=== PATIENT | male | born 1950 | race Caucasian/White ===

== ENCOUNTER 2022-12-14 10:21 | Inpatient (IN) | payer BC, OTHER ==
[2022-12-14] MEDS ORDERED: ACETAMINOPHEN 1000 MG/100 ML BAG IVPB ONE ×2 (10:50→16:27)
[2022-12-14] MEDS ORDERED: PIPERACILLIN/TAZOB 3.375 GM 3.375 GM in DEXTROSE 5%-WATER - 50 ML IVPB ONE (10:50)
[2022-12-14] MEDS ORDERED: SODIUM CHLORIDE 1,000 ML IV STA (10:50)
[2022-12-14] MEDS ORDERED: ACETAMINOPHEN INJECTION 100 ML IVPB ONE ×2 (10:50→16:47)
[2022-12-14] MEDS ORDERED: VANCOMYCIN 1 GM in D5W (PRE-DOCKED) 1,000 MG/250 ML (RESTRICTED TO ID ONLY IVPB ONE (10:50)
[2022-12-14 11:29] LABS: VENOUS BASE EXCESS 1.5 mmol/L (-2-2); VENOUS O2 SATURATION 38.2 % (70-80); VENOUS PCO2 46.5 mmHg (38-52); VENOUS PH 7.382 (7.310-7.410)
[2022-12-14] MEDS ORDERED: VANCOMYCIN/WATER FOR INJ (PEG) 1,000 MG/200 ML BAG IVPB ONE (11:33)
[2022-12-14] MEDS ORDERED: PIPERACILLIN/TAZOB 3.375 GM 3.375 GM/50 ML BAG IVPB ONE (11:33)
[2022-12-14 11:39] LABS: BASO % 0.3 % (0-2.0); EOS % 1.4 % (0-4.5); HEMATOCRIT 31.8 % (35.4-49); HEMOGLOBIN 10.8 GM/dL (11.7-16.9); INR 1.17 (0.83-1.09); LYMPH % 12.5 % (8-40); MCH 31.6 pg (25.7-33.7); MCHC 33.9 g/dl (32.0-35.9); MEAN CELL VOLUME 93.3 fl (80-96); MEAN PLT VOLUME 8.6 fl (7.5-11.1); MONO % 6.6 % (3.8-10.2); NEUT % 79.2 % (42.8-82.8); PLATELET COUNT 314 10^3/uL (134-434); PROTHROMBIN TIME (PATIENT) 13.5 SEC (9.7-13.0); RBC 3.41 M/mm3 (4.00-5.60); RDW 15.8 % (11.9-15.9); WHITE BLOOD COUNT 14.5 K/mm3 (4.0-10.0)
[2022-12-14 11:41] LABS: ACTIVATED PTT 32.4 SECONDS (25.2-36.5)
[2022-12-14 11:57] LABS: BLOOD UREA NITROGEN 12.6 mg/dL (7-18); CALCIUM 9.6 mg/dL (8.5-10.1)
[2022-12-14 11:58] LABS: ALBUMIN 3.1 g/dl (3.4-5.0)
[2022-12-14 12:01] LABS: CREATININE 0.6 mg/dL (0.55-1.3)
[2022-12-14 12:02] LABS: BILIRUBIN,TOTAL 0.5 mg/dL (0.2-1); TOT PROT 8.9 g/dl (6.4-8.2)
[2022-12-14 12:22] LABS: EPI CELLS >36 /uL (0-25.1); HYALINE CASTS 6 /uL (0-3.1); PH,URINE 5.5 (5.0-8.0); URINE APPEARANCE TURBID; URINE BACTERIA >9,000 /uL (0-1359); URINE BILIRUBIN NEGATIVE (NEGATIVE); URINE COLOR YELLOW; URINE GLUCOSE (UA) NEGATIVE (NEGATIVE); URINE KETONE NEGATIVE (NEGATIVE); URINE LEUK ESTERASE 3+ (NEGATIVE); URINE NITRITE NEGATIVE (NEGATIVE); URINE PROTEIN 3+ (NEGATIVE); URINE UROBILINOGEN 0.2 mg/dL (0.2-1.0); URINE WBC 12392 /uL (0-25.8)
[2022-12-14 12:46] LABS: URINE RBC 594.2 /uL (0-23.9); YEAST NONE SEEN (NEGATIVE)
[2022-12-14] MEDS ORDERED: ALBUTEROL SO4 2.5/IPRATROPIUM 0.5 INH SOL 3 ML VIAL.NEB. NEB PRN (14:26)
[2022-12-14] MEDS ORDERED: ACETAMINOPHEN 325 MG TABLET (FP) PO PRN (14:26)
[2022-12-14] MEDS ORDERED: LACTATED RINGERS SOLUTION 1,000 ML/1,000 ML INFUS.BAG IV SCH (14:45)
[2022-12-14] MEDS ORDERED: ALBUTEROL SO4 2.5/IPRATROPIUM 0.5 INH SOL 3 ML VIAL.NEB. NEB ONE ×2 (16:46→20:23)
[2022-12-14] MEDS ORDERED: PHENYTOIN NA EXTENDED 100 MG CAPSULE (FP) ONE (16:47)
[2022-12-14] MEDS ORDERED: LACOSAMIDE 50 MG TABLET PO ONE (16:47)
[2022-12-14] MEDS ORDERED: CEFEPIME 1 GM/100 ML BAG IVPB ONE (16:47)
[2022-12-14] MEDS ORDERED: ACETAMINOPHEN 650 MG/20.3 ML ORAL SOLUTION (CUPS) GT PRN (17:02)
[2022-12-14] MEDS: Lacosamide 50 MG/5 ML ORAL SOLUTION UNIT CUPS GT SCH (17:05)
[2022-12-14] MEDS: PHENYTOIN 100 MG/4 ML U-D CUP GT SCH (17:05)
[2022-12-14] MEDS: CEFEPIME 1 GM in DEXTROSE 5%-WATER 100 ML IVPB SCH (17:06)
[2022-12-14] MEDS: ALBUTEROL SO4 2.5/IPRATROPIUM 0.5 INH SOL 3 ML VIAL.NEB. NEB SCH ×2 (17:06→22:10)
[2022-12-14] MEDS: INSULIN SLIDING SCALE (NOVOLOG) 1 VIAL SQ SCH (20:22)
[2022-12-14] MEDS ORDERED: DOXAZOSIN MESYLATE 8 MG TABLET GT SCH (22:00)
[2022-12-14] MEDS ORDERED: SENNOSIDES 8.6MG TABLET (FP) PO SCH (22:00)
[2022-12-15] MEDS: Lacosamide 50 MG/5 ML ORAL SOLUTION UNIT CUPS GT SCH ×4 (00:46→22:31)
[2022-12-15] MEDS: SENNOSIDES 8.8 MG/5 ML SYRUP GT SCH ×2 (00:46→22:58)
[2022-12-15] MEDS: PHENYTOIN 100 MG/4 ML U-D CUP GT SCH ×4 (00:46→22:33)
[2022-12-15] MEDS ORDERED: ENOXAPARIN NA (PORCINE) 40 MG/0.4 ML DISP.SYRIN SQ ONE (00:47)
[2022-12-15] MEDS ORDERED: methylPREDNISolone NA SUCC 40 MG/1 ML VIAL ONE (00:48)
[2022-12-15] MEDS: methylPREDNISolone NA SUCC 40 MG/1 ML VIAL IVPUSH SCH ×3 (00:53→22:39)
[2022-12-15] MEDS: ENOXAPARIN NA (PORCINE) 40 MG/0.4 ML DISP.SYRIN SQ SCH ×2 (00:53→22:38)
[2022-12-15] MEDS ORDERED: DOXYCYCLINE HYCLATE 100 MG VIAL ONE (01:01)
[2022-12-15] MEDS: DOXYCYCLINE INJECTION 100 MG in DEXTROSE 5%-WATER 100 ML IVPB SCH ×2 (01:13→09:13)
[2022-12-15] MEDS: INSULIN (LEVEMIR) 100 UNITS/ML UNITS SQ SCH ×2 (01:26→22:35)
[2022-12-15] MEDS: MUPIROCIN 2% TOPICAL OINTMENT 22 GM TUBE TP SCH ×3 (01:30→22:43)
[2022-12-15] MEDS ORDERED: ALBUTEROL SO4 2.5/IPRATROPIUM 0.5 INH SOL 3 ML VIAL.NEB. NEB ONE (01:30)
[2022-12-15] MEDS: ALBUTEROL SO4 2.5/IPRATROPIUM 0.5 INH SOL 3 ML VIAL.NEB. NEB SCH ×6 (01:31→20:05)
[2022-12-15] MEDS: CEFEPIME 1 GM in DEXTROSE 5%-WATER 100 ML IVPB SCH (04:10)
[2022-12-15 06:13] VITALS: BMI 25.7
[2022-12-15] MEDS: INSULIN SLIDING SCALE (NOVOLOG) 1 VIAL SQ SCH ×3 (06:43→17:24)
[2022-12-15 07:40] LABS: BASO % 0.4 % (0-2.0); EOS % 0.1 % (0-4.5); HEMATOCRIT 29.7 % (35.4-49); HEMOGLOBIN 9.9 GM/dL (11.7-16.9); LYMPH % 13.2 % (8-40); MCH 31.6 pg (25.7-33.7); MCHC 33.5 g/dl (32.0-35.9); MEAN CELL VOLUME 94.4 fl (80-96); MEAN PLT VOLUME 9.7 fl (7.5-11.1); MONO % 7.4 % (3.8-10.2); NEUT % 78.9 % (42.8-82.8); PLATELET COUNT 236 10^3/uL (134-434); RBC 3.14 M/mm3 (4.00-5.60); WHITE BLOOD COUNT 18.6 K/mm3 (4.0-10.0)
[2022-12-15] MEDS ORDERED: LACTATED RINGERS SOLUTION 1000 ML INFUS.BAG IV ONE (08:45)
[2022-12-15 08:48] LABS: CALCIUM 8.8 mg/dL (8.5-10.1)
[2022-12-15 08:49] LABS: BLOOD UREA NITROGEN 19.4 mg/dL (7-18)
[2022-12-15 08:52] LABS: CREATININE 0.5 mg/dL (0.55-1.3)
[2022-12-15] MEDS: CHLORHEXIDINE GLUCONATE 4% CLEANSER FOR DECOLONIZATION TP SCH ×2 (09:10→22:32)
[2022-12-15] MEDS: MUPIROCIN 2% TOPICAL OINTMENT FOR DECOLONIZATION NS SCH ×3 (09:10→22:43)
[2022-12-15] MEDS: FUROSEMIDE 20 MG TABLET (FP) GT SCH (09:14)
[2022-12-15] MEDS: amLODIPine BESYLATE 5 MG TABLET (FP) GT SCH (09:14)
[2022-12-15] MEDS: FINASTERIDE 5 MG TABLET (FP) GT SCH (09:14)
[2022-12-15] MEDS: LACTOBACILLUS ACIDOPHILUS 1 TABLET GT SCH (09:14)
[2022-12-15] MEDS: POLYETHYLENE GLYCOL (HEALTHYLAX) 3350 17 GM PACKET GT SCH (09:15)
[2022-12-15] MEDS: MULTIVIT-MINERALS ORAL LIQUID GT SCH (11:45)
[2022-12-15] MEDS: FAMOTIDINE 40 MG/5 ML ORAL SUSPENSION PEG SCH (11:46)
[2022-12-15] MEDS: CEFEPIME HCL/D5W 1 GM/50 ML BAG IVPB SCH (11:49)
[2022-12-15] MEDS: PIPERACILLIN/TAZOB 4.5 GM 4.5 GM in DEXTROSE 5%-WATER 100 ML IVPB SCH ×2 (13:17→17:06)
[2022-12-15] MEDS: DOXAZOSIN MESYLATE 4 MG TABLET GT SCH (22:30)
[2022-12-16] MEDS: ALBUTEROL SO4 2.5/IPRATROPIUM 0.5 INH SOL 3 ML VIAL.NEB. NEB SCH ×7 (00:05→23:55)
[2022-12-16] MEDS ORDERED: PIPERACILLIN/TAZOBACTAM 4.5 GM VIAL IVPB ONE (01:08)
[2022-12-16] MEDS: PIPERACILLIN/TAZOB 4.5 GM 4.5 GM in DEXTROSE 5%-WATER 100 ML IVPB SCH ×3 (01:17→18:01)
[2022-12-16] MEDS: Lacosamide 50 MG/5 ML ORAL SOLUTION UNIT CUPS GT SCH ×3 (06:33→22:12)
[2022-12-16] MEDS: PHENYTOIN 100 MG/4 ML U-D CUP GT SCH ×3 (06:33→22:08)
[2022-12-16] MEDS: INSULIN SLIDING SCALE (NOVOLOG) 1 VIAL SQ SCH ×3 (06:33→18:01)
[2022-12-16 08:19] LABS: HEMATOCRIT 25.3 % (35.4-49); HEMOGLOBIN 8.6 GM/dL (11.7-16.9); MEAN PLT VOLUME 9.4 fl (7.5-11.1); PLATELET COUNT 273 10^3/uL (134-434); RBC 2.69 M/mm3 (4.00-5.60); RDW 15.6 % (11.9-15.9)
[2022-12-16 08:20] LABS: MAGNESIUM 2.1 mg/dL (1.8-2.4)
[2022-12-16 08:22] LABS: BLOOD UREA NITROGEN 18.2 mg/dL (7-18); CALCIUM 8.9 mg/dL (8.5-10.1)
[2022-12-16 08:24] LABS: BILIRUBIN,DIRECT 0.1 mg/dL (0.0-0.2); CREATININE 0.5 mg/dL (0.55-1.3)
[2022-12-16 08:25] LABS: PHOSPHOROUS 2.2 mg/dL (2.5-4.9)
[2022-12-16 08:26] LABS: BILIRUBIN,TOTAL 0.2 mg/dL (0.2-1)
[2022-12-16 08:28] LABS: ALBUMIN 2.2 g/dl (3.4-5.0)
[2022-12-16] MEDS: amLODIPine BESYLATE 5 MG TABLET (FP) GT SCH (09:06)
[2022-12-16] MEDS: POLYETHYLENE GLYCOL (HEALTHYLAX) 3350 17 GM PACKET GT SCH (09:06)
[2022-12-16] MEDS: FINASTERIDE 5 MG TABLET (FP) GT SCH (09:06)
[2022-12-16] MEDS: methylPREDNISolone NA SUCC 40 MG/1 ML VIAL IVPUSH SCH ×2 (09:06→22:10)
[2022-12-16] MEDS: FUROSEMIDE 20 MG TABLET (FP) GT SCH (09:06)
[2022-12-16] MEDS: LACTOBACILLUS ACIDOPHILUS 1 TABLET GT SCH (09:06)
[2022-12-16] MEDS: MULTIVIT-MINERALS ORAL LIQUID GT SCH (11:34)
[2022-12-16] MEDS: FAMOTIDINE 40 MG/5 ML ORAL SUSPENSION PEG SCH (11:35)
[2022-12-16] MEDS: MUPIROCIN 2% TOPICAL OINTMENT 22 GM TUBE TP SCH ×2 (11:36→22:07)
[2022-12-16] MEDS: MUPIROCIN 2% TOPICAL OINTMENT FOR DECOLONIZATION NS SCH ×2 (11:37→22:07)
[2022-12-16] MEDS: DOXAZOSIN MESYLATE 4 MG TABLET GT SCH (22:08)
[2022-12-16] MEDS: INSULIN (LEVEMIR) 100 UNITS/ML UNITS SQ SCH (22:08)
[2022-12-16] MEDS: CHLORHEXIDINE GLUCONATE 4% CLEANSER FOR DECOLONIZATION TP SCH (22:08)
[2022-12-16] MEDS: SENNOSIDES 8.8 MG/5 ML SYRUP GT SCH (22:09)
[2022-12-16] MEDS: ENOXAPARIN NA (PORCINE) 40 MG/0.4 ML DISP.SYRIN SQ SCH (22:09)
[2022-12-17] MEDS: PIPERACILLIN/TAZOB 4.5 GM 4.5 GM in DEXTROSE 5%-WATER 100 ML IVPB SCH ×2 (02:14→09:14)
[2022-12-17] MEDS: ALBUTEROL SO4 2.5/IPRATROPIUM 0.5 INH SOL 3 ML VIAL.NEB. NEB SCH ×6 (04:23→23:59)
[2022-12-17] MEDS: PHENYTOIN 100 MG/4 ML U-D CUP GT SCH (06:20)
[2022-12-17] MEDS: INSULIN SLIDING SCALE (NOVOLOG) 1 VIAL SQ SCH ×3 (06:21→17:31)
[2022-12-17 06:48] LABS: HEMATOCRIT 22.7 % (35.4-49); HEMOGLOBIN 7.8 GM/dL (11.7-16.9); MCH 32.1 pg (25.7-33.7); MCHC 34.4 g/dl (32.0-35.9); MEAN CELL VOLUME 93.3 fl (80-96); MEAN PLT VOLUME 8.7 fl (7.5-11.1); PLATELET COUNT 307 10^3/uL (134-434); RBC 2.44 M/mm3 (4.00-5.60); RDW 15.7 % (11.9-15.9); WHITE BLOOD COUNT 11.7 K/mm3 (4.0-10.0)
[2022-12-17 07:13] LABS: ALBUMIN 2.4 g/dl (3.4-5.0); BLOOD UREA NITROGEN 12.3 mg/dL (7-18); CALCIUM 9.1 mg/dL (8.5-10.1); MAGNESIUM 2.1 mg/dL (1.8-2.4)
[2022-12-17 07:16] LABS: BILIRUBIN,DIRECT 0.1 mg/dL (0.0-0.2); CREATININE 0.5 mg/dL (0.55-1.3); PHOSPHOROUS 2.6 mg/dL (2.5-4.9)
[2022-12-17 07:18] LABS: BILIRUBIN,TOTAL 0.2 mg/dL (0.2-1); TOT PROT 7.2 g/dl (6.4-8.2)
[2022-12-17] MEDS ORDERED: POTASSIUM CHLORIDE ORAL LIQUID 20 MEQ/15 ML PO ONE (07:30)
[2022-12-17] MEDS: Lacosamide 50 MG/5 ML ORAL SOLUTION UNIT CUPS GT SCH ×3 (09:10→22:44)
[2022-12-17] MEDS: MULTIVIT-MINERALS ORAL LIQUID GT SCH (09:13)
[2022-12-17] MEDS: FAMOTIDINE 40 MG/5 ML ORAL SUSPENSION PEG SCH (09:13)
[2022-12-17] MEDS: FINASTERIDE 5 MG TABLET (FP) GT SCH (09:52)
[2022-12-17] MEDS: methylPREDNISolone NA SUCC 40 MG/1 ML VIAL IVPUSH SCH ×2 (09:53→22:38)
[2022-12-17] MEDS: amLODIPine BESYLATE 5 MG TABLET (FP) GT SCH (09:54)
[2022-12-17] MEDS: POLYETHYLENE GLYCOL (HEALTHYLAX) 3350 17 GM PACKET GT SCH (09:54)
[2022-12-17] MEDS: FUROSEMIDE 20 MG TABLET (FP) GT SCH (09:54)
[2022-12-17] MEDS: LACTOBACILLUS ACIDOPHILUS 1 TABLET GT SCH (09:55)
[2022-12-17] MEDS: MUPIROCIN 2% TOPICAL OINTMENT 22 GM TUBE TP SCH ×2 (09:56→22:30)
[2022-12-17] MEDS: MUPIROCIN 2% TOPICAL OINTMENT FOR DECOLONIZATION NS SCH ×2 (09:56→22:30)
[2022-12-17] MEDS: METOPROLOL TARTRATE 25 MG TABLET (FP) PO SCH ×2 (11:30→22:36)
[2022-12-17] MEDS: PHENYTOIN ORAL SUSP 125 MG/5 ML GT SCH ×2 (15:00→22:44)
[2022-12-17] MEDS: CEFTRIAXONE 1 GM in DEXTROSE 5%-WATER - 50 ML IVPB SCH (15:22)
[2022-12-17] MEDS: CHLORHEXIDINE GLUCONATE 4% CLEANSER FOR DECOLONIZATION TP SCH (22:31)
[2022-12-17] MEDS: DOXAZOSIN MESYLATE 4 MG TABLET GT SCH (22:31)
[2022-12-17] MEDS: INSULIN (LEVEMIR) 100 UNITS/ML UNITS SQ SCH (22:35)
[2022-12-17] MEDS: ENOXAPARIN NA (PORCINE) 40 MG/0.4 ML DISP.SYRIN SQ SCH (22:36)
[2022-12-17] MEDS: SENNOSIDES 8.8 MG/5 ML SYRUP GT SCH (22:38)
[2022-12-18] MEDS: ALBUTEROL SO4 2.5/IPRATROPIUM 0.5 INH SOL 3 ML VIAL.NEB. NEB SCH ×5 (04:00→20:48)
[2022-12-18] MEDS: INSULIN SLIDING SCALE (NOVOLOG) 1 VIAL SQ SCH ×3 (06:44→19:35)
[2022-12-18] MEDS: PHENYTOIN ORAL SUSP 125 MG/5 ML GT SCH ×3 (06:44→21:36)
[2022-12-18] MEDS: Lacosamide 50 MG/5 ML ORAL SOLUTION UNIT CUPS GT SCH ×3 (06:44→21:34)
[2022-12-18 06:47] LABS: HEMATOCRIT 26.4 % (35.4-49); HEMOGLOBIN 9.2 GM/dL (11.7-16.9); MCH 32.6 pg (25.7-33.7); MCHC 35.1 g/dl (32.0-35.9); MEAN PLT VOLUME 8.5 fl (7.5-11.1); PLATELET COUNT 377 10^3/uL (134-434); RBC 2.83 M/mm3 (4.00-5.60); RDW 15.6 % (11.9-15.9); WHITE BLOOD COUNT 8.6 K/mm3 (4.0-10.0)
[2022-12-18 07:16] LABS: ALBUMIN 2.5 g/dl (3.4-5.0); BILIRUBIN,DIRECT 0.1 mg/dL (0.0-0.2); BLOOD UREA NITROGEN 16.5 mg/dL (7-18); CREATININE 0.5 mg/dL (0.55-1.3)
[2022-12-18 07:18] LABS: BILIRUBIN,TOTAL 0.2 mg/dL (0.2-1); TOT PROT 7.6 g/dl (6.4-8.2)
[2022-12-18] MEDS: LACTOBACILLUS ACIDOPHILUS 1 TABLET GT SCH (10:18)
[2022-12-18] MEDS: METOPROLOL TARTRATE 25 MG TABLET (FP) PO SCH ×2 (10:18→21:35)
[2022-12-18] MEDS: amLODIPine BESYLATE 5 MG TABLET (FP) GT SCH (10:18)
[2022-12-18] MEDS: CEFTRIAXONE 1 GM in DEXTROSE 5%-WATER - 50 ML IVPB SCH (10:18)
[2022-12-18] MEDS: FINASTERIDE 5 MG TABLET (FP) GT SCH (10:18)
[2022-12-18] MEDS: methylPREDNISolone NA SUCC 40 MG/1 ML VIAL IVPUSH SCH ×2 (10:18→21:37)
[2022-12-18] MEDS: POLYETHYLENE GLYCOL (HEALTHYLAX) 3350 17 GM PACKET GT SCH (10:18)
[2022-12-18] MEDS: FUROSEMIDE 20 MG TABLET (FP) GT SCH (10:18)
[2022-12-18] MEDS: MUPIROCIN 2% TOPICAL OINTMENT 22 GM TUBE TP SCH ×2 (10:20→21:34)
[2022-12-18] MEDS: FAMOTIDINE 40 MG/5 ML ORAL SUSPENSION PEG SCH (10:20)
[2022-12-18] MEDS: MULTIVIT-MINERALS ORAL LIQUID GT SCH (10:20)
[2022-12-18] MEDS: MUPIROCIN 2% TOPICAL OINTMENT FOR DECOLONIZATION NS SCH ×2 (10:21→21:34)
[2022-12-18] MEDS: ENOXAPARIN NA (PORCINE) 40 MG/0.4 ML DISP.SYRIN SQ SCH (21:35)
[2022-12-18] MEDS: DOXAZOSIN MESYLATE 4 MG TABLET GT SCH (21:36)
[2022-12-18] MEDS: CHLORHEXIDINE GLUCONATE 4% CLEANSER FOR DECOLONIZATION TP SCH (21:36)
[2022-12-18] MEDS: SENNOSIDES 8.8 MG/5 ML SYRUP GT SCH (21:37)
[2022-12-18] MEDS: INSULIN (LEVEMIR) 100 UNITS/ML UNITS SQ SCH (21:41)
[2022-12-19] MEDS: ALBUTEROL SO4 2.5/IPRATROPIUM 0.5 INH SOL 3 ML VIAL.NEB. NEB SCH ×4 (04:00→11:43)
[2022-12-19] MEDS: Lacosamide 50 MG/5 ML ORAL SOLUTION UNIT CUPS GT SCH ×3 (05:57→22:44)
[2022-12-19] MEDS: PHENYTOIN ORAL SUSP 125 MG/5 ML GT SCH ×3 (05:57→22:47)
[2022-12-19] MEDS: INSULIN SLIDING SCALE (NOVOLOG) 1 VIAL SQ SCH ×3 (06:00→17:52)
[2022-12-19 07:37] LABS: HEMATOCRIT 28.5 % (35.4-49); HEMOGLOBIN 9.8 GM/dL (11.7-16.9); MCH 32.2 pg (25.7-33.7); MCHC 34.6 g/dl (32.0-35.9); MEAN CELL VOLUME 93.2 fl (80-96); MEAN PLT VOLUME 8.2 fl (7.5-11.1); PLATELET COUNT 437 10^3/uL (134-434); RBC 3.06 M/mm3 (4.00-5.60); RDW 15.3 % (11.9-15.9); WHITE BLOOD COUNT 10.7 K/mm3 (4.0-10.0)
[2022-12-19 08:13] LABS: CALCIUM 9.2 mg/dL (8.5-10.1)
[2022-12-19 08:14] LABS: ALBUMIN 2.7 g/dl (3.4-5.0); BLOOD UREA NITROGEN 18.4 mg/dL (7-18); MAGNESIUM 2.1 mg/dL (1.8-2.4)
[2022-12-19 08:17] LABS: CREATININE 0.5 mg/dL (0.55-1.3); PHOSPHOROUS 3.4 mg/dL (2.5-4.9)
[2022-12-19 08:18] LABS: BILIRUBIN,TOTAL 0.2 mg/dL (0.2-1)
[2022-12-19] MEDS: amLODIPine BESYLATE 5 MG TABLET (FP) GT SCH (09:00)
[2022-12-19] MEDS: METOPROLOL TARTRATE 25 MG TABLET (FP) PO SCH (09:00)
[2022-12-19] MEDS: MUPIROCIN 2% TOPICAL OINTMENT 22 GM TUBE TP SCH (09:00)
[2022-12-19] MEDS: methylPREDNISolone NA SUCC 40 MG/1 ML VIAL IVPUSH SCH ×2 (09:00→22:45)
[2022-12-19] MEDS: FUROSEMIDE 20 MG TABLET (FP) GT SCH (09:00)
[2022-12-19] MEDS: LACTOBACILLUS ACIDOPHILUS 1 TABLET GT SCH (09:00)
[2022-12-19] MEDS: FINASTERIDE 5 MG TABLET (FP) GT SCH (09:00)
[2022-12-19] MEDS: FAMOTIDINE 40 MG/5 ML ORAL SUSPENSION PEG SCH (09:01)
[2022-12-19] MEDS: POLYETHYLENE GLYCOL (HEALTHYLAX) 3350 17 GM PACKET GT SCH (09:01)
[2022-12-19] MEDS: MULTIVIT-MINERALS ORAL LIQUID GT SCH (09:01)
[2022-12-19] MEDS: MUPIROCIN 2% TOPICAL OINTMENT FOR DECOLONIZATION NS SCH (09:02)
[2022-12-19] MEDS: CEFTRIAXONE 1 GM in DEXTROSE 5%-WATER - 50 ML IVPB SCH (09:02)
[2022-12-19] MEDS ORDERED: ACETAMINOPHEN 650 MG/20.3 ML ORAL SOLUTION (CUPS) GT PRN (17:24)
[2022-12-19] MEDS ORDERED: INSULIN (LEVEMIR) 100 UNITS/ML UNITS SQ ONE (21:40)
[2022-12-19] MEDS ORDERED: MUPIROCIN 2% TOPICAL OINTMENT FOR DECOLONIZATION NS SCH (22:00)
[2022-12-19] MEDS ORDERED: MUPIROCIN 2% TOPICAL OINTMENT 22 GM TUBE TP SCH (22:00)
[2022-12-19] MEDS ORDERED: CHLORHEXIDINE GLUCONATE 4% CLEANSER FOR DECOLONIZATION TP SCH (22:00)
[2022-12-19] MEDS: METOPROLOL TARTRATE 25 MG TABLET (FP) GT SCH (22:44)
[2022-12-19] MEDS: ENOXAPARIN NA (PORCINE) 40 MG/0.4 ML DISP.SYRIN SQ SCH (22:45)
[2022-12-19] MEDS: INSULIN (LEVEMIR) 100 UNITS/ML UNITS SQ SCH (22:45)
[2022-12-19] MEDS: DOXAZOSIN MESYLATE 4 MG TABLET GT SCH (22:51)
[2022-12-19] MEDS: SENNOSIDES 8.8 MG/5 ML SYRUP GT SCH (23:08)
[2022-12-20] MEDS: Lacosamide 50 MG/5 ML ORAL SOLUTION UNIT CUPS GT SCH ×3 (06:52→21:07)
[2022-12-20] MEDS: INSULIN SLIDING SCALE (NOVOLOG) 1 VIAL SQ SCH ×3 (07:17→17:54)
[2022-12-20] MEDS: PHENYTOIN ORAL SUSP 125 MG/5 ML GT SCH ×2 (08:05→15:00)
[2022-12-20 08:20] LABS: CALCIUM 9.4 mg/dL (8.5-10.1)
[2022-12-20 08:21] LABS: ALBUMIN 2.8 g/dl (3.4-5.0); BLOOD UREA NITROGEN 22.4 mg/dL (7-18); MAGNESIUM 2.2 mg/dL (1.8-2.4)
[2022-12-20 08:24] LABS: CREATININE 0.6 mg/dL (0.55-1.3); PHOSPHOROUS 4.4 mg/dL (2.5-4.9)
[2022-12-20 08:25] LABS: BILIRUBIN,TOTAL 0.2 mg/dL (0.2-1)
[2022-12-20 08:26] LABS: TOT PROT 8.1 g/dl (6.4-8.2)
[2022-12-20 08:34] LABS: HEMATOCRIT 29.7 % (35.4-49); HEMOGLOBIN 10.1 GM/dL (11.7-16.9); MCH 31.7 pg (25.7-33.7); MCHC 33.9 g/dl (32.0-35.9); MEAN CELL VOLUME 93.4 fl (80-96); PLATELET COUNT 487 10^3/uL (134-434); RBC 3.18 M/mm3 (4.00-5.60); RDW 15.5 % (11.9-15.9); WHITE BLOOD COUNT 12.2 K/mm3 (4.0-10.0)
[2022-12-20 08:37] LABS: HEMATOCRIT 29.3 % (35.4-49); HEMOGLOBIN 10.1 GM/dL (11.7-16.9); MCHC 34.4 g/dl (32.0-35.9); MEAN CELL VOLUME 93.2 fl (80-96); MEAN PLT VOLUME 8.3 fl (7.5-11.1); PLATELET COUNT 487 10^3/uL (134-434); RBC 3.14 M/mm3 (4.00-5.60); RDW 15.6 % (11.9-15.9); WHITE BLOOD COUNT 12.2 K/mm3 (4.0-10.0)
[2022-12-20] MEDS ORDERED: CEFTRIAXONE 1 GM in DEXTROSE 5%-WATER - 50 ML IVPB SCH (10:00)
[2022-12-20] MEDS: FAMOTIDINE 40 MG/5 ML ORAL SUSPENSION PEG SCH (10:58)
[2022-12-20] MEDS: amLODIPine BESYLATE 5 MG TABLET (FP) GT SCH (10:59)
[2022-12-20] MEDS: LACTOBACILLUS ACIDOPHILUS 1 TABLET GT SCH (10:59)
[2022-12-20] MEDS: FUROSEMIDE 20 MG TABLET (FP) GT SCH (10:59)
[2022-12-20] MEDS: POLYETHYLENE GLYCOL (HEALTHYLAX) 3350 17 GM PACKET GT SCH (10:59)
[2022-12-20] MEDS: MULTIVIT-MINERALS ORAL LIQUID GT SCH (11:00)
[2022-12-20] MEDS: FINASTERIDE 5 MG TABLET (FP) GT SCH (11:00)
[2022-12-20] MEDS: METOPROLOL TARTRATE 25 MG TABLET (FP) GT SCH ×2 (11:00→21:07)
[2022-12-20] MEDS: methylPREDNISolone NA SUCC 40 MG/1 ML VIAL IVPUSH SCH ×2 (11:03→21:09)
[2022-12-20 11:10] LABS: ANISOCYTOSIS 0; MACROCYTOSIS 0
[2022-12-20] MEDS: SENNOSIDES 8.8 MG/5 ML SYRUP GT SCH (21:06)
[2022-12-20] MEDS: DOXAZOSIN MESYLATE 4 MG TABLET GT SCH (21:07)
[2022-12-20] MEDS: INSULIN (LEVEMIR) 100 UNITS/ML UNITS SQ SCH (21:08)
[2022-12-20] MEDS: ENOXAPARIN NA (PORCINE) 40 MG/0.4 ML DISP.SYRIN SQ SCH (21:09)
[2022-12-21] MEDS: PHENYTOIN ORAL SUSP 125 MG/5 ML GT SCH ×4 (00:01→22:51)
[2022-12-21] MEDS: INSULIN SLIDING SCALE (NOVOLOG) 1 VIAL SQ SCH ×3 (06:08→17:35)
[2022-12-21] MEDS: Lacosamide 50 MG/5 ML ORAL SOLUTION UNIT CUPS GT SCH ×3 (06:43→22:52)
[2022-12-21 08:26] LABS: HEMATOCRIT 29.6 % (35.4-49); HEMOGLOBIN 10.5 GM/dL (11.7-16.9); MCH 32.6 pg (25.7-33.7); MCHC 35.3 g/dl (32.0-35.9); MEAN CELL VOLUME 92.4 fl (80-96); MEAN PLT VOLUME 7.8 fl (7.5-11.1); PLATELET COUNT 531 10^3/uL (134-434); RDW 15.4 % (11.9-15.9); WHITE BLOOD COUNT 10.6 K/mm3 (4.0-10.0)
[2022-12-21 08:29] LABS: CALCIUM 9.5 mg/dL (8.5-10.1)
[2022-12-21 08:30] LABS: BLOOD UREA NITROGEN 24.6 mg/dL (7-18); MAGNESIUM 2.4 mg/dL (1.8-2.4)
[2022-12-21 08:33] LABS: CREATININE 0.6 mg/dL (0.55-1.3); PHOSPHOROUS 3.7 mg/dL (2.5-4.9)
[2022-12-21 08:34] LABS: BILIRUBIN,TOTAL 0.2 mg/dL (0.2-1); TOT PROT 8.2 g/dl (6.4-8.2)
[2022-12-21] MEDS ORDERED: CEFPODOXIME PROXETIL 200 MG TABLET [NF] NR SCH ×2 (10:00)
[2022-12-21] MEDS: POLYETHYLENE GLYCOL (HEALTHYLAX) 3350 17 GM PACKET GT SCH (10:24)
[2022-12-21] MEDS: amLODIPine BESYLATE 5 MG TABLET (FP) GT SCH (10:24)
[2022-12-21] MEDS: FINASTERIDE 5 MG TABLET (FP) GT SCH (10:24)
[2022-12-21] MEDS: METOPROLOL TARTRATE 25 MG TABLET (FP) GT SCH ×2 (10:24→22:51)
[2022-12-21] MEDS: methylPREDNISolone NA SUCC 40 MG/1 ML VIAL IVPUSH SCH (10:24)
[2022-12-21] MEDS: FUROSEMIDE 20 MG TABLET (FP) GT SCH (10:24)
[2022-12-21] MEDS: LACTOBACILLUS ACIDOPHILUS 1 TABLET GT SCH (10:25)
[2022-12-21] MEDS: FAMOTIDINE 40 MG/5 ML ORAL SUSPENSION PEG SCH (10:26)
[2022-12-21] MEDS: MULTIVIT-MINERALS ORAL LIQUID GT SCH (10:27)
[2022-12-21] MEDS ORDERED: INSULIN (NOVOLOG) ASPART 100 UNITS/ML 10ML VIAL ONE ×5 (11:51→20:30)
[2022-12-21] MEDS: AMOX TR/POTASSIUM CLAVULANATE 250 MG/5 ML BOTTLE GT SCH ×2 (17:44→22:50)
[2022-12-21] MEDS: ENOXAPARIN NA (PORCINE) 40 MG/0.4 ML DISP.SYRIN SQ SCH (22:23)
[2022-12-21] MEDS: INSULIN (LEVEMIR) 100 UNITS/ML UNITS SQ SCH (22:24)
[2022-12-21] MEDS: DOXAZOSIN MESYLATE 4 MG TABLET GT SCH (22:51)
[2022-12-21] MEDS: SENNOSIDES 8.8 MG/5 ML SYRUP GT SCH (22:51)
[2022-12-22] MEDS: AMOX TR/POTASSIUM CLAVULANATE 250 MG/5 ML BOTTLE GT SCH ×3 (06:11→21:11)
[2022-12-22] MEDS: INSULIN SLIDING SCALE (NOVOLOG) 1 VIAL SQ SCH ×3 (06:11→16:46)
[2022-12-22] MEDS: Lacosamide 50 MG/5 ML ORAL SOLUTION UNIT CUPS GT SCH ×3 (06:11→21:12)
[2022-12-22] MEDS: PHENYTOIN ORAL SUSP 125 MG/5 ML GT SCH ×3 (06:13→21:11)
[2022-12-22] MEDS: AMINO ACIDS/PROTEIN HYDROLYS 30 ML LIQUID.PKT PO SCH (08:35)
[2022-12-22 08:59] LABS: HEMATOCRIT 28.9 % (35.4-49); HEMOGLOBIN 10.1 GM/dL (11.7-16.9); MCH 32.6 pg (25.7-33.7); MEAN CELL VOLUME 93.2 fl (80-96); PLATELET COUNT 557 10^3/uL (134-434); WHITE BLOOD COUNT 9.4 K/mm3 (4.0-10.0)
[2022-12-22 09:28] LABS: CALCIUM 9.5 mg/dL (8.5-10.1); MAGNESIUM 2.4 mg/dL (1.8-2.4)
[2022-12-22 09:29] LABS: BLOOD UREA NITROGEN 22.6 mg/dL (7-18)
[2022-12-22 09:31] LABS: CREATININE 0.5 mg/dL (0.55-1.3); PHOSPHOROUS 3.7 mg/dL (2.5-4.9)
[2022-12-22 09:32] LABS: TOT PROT 7.9 g/dl (6.4-8.2)
[2022-12-22 09:33] LABS: BILIRUBIN,TOTAL 0.2 mg/dL (0.2-1)
[2022-12-22] MEDS: MULTIVIT-MINERALS ORAL LIQUID GT SCH (10:25)
[2022-12-22] MEDS: ASCORBIC ACID 500 MG TABLET (FP) PO SCH (10:25)
[2022-12-22] MEDS: LACTOBACILLUS ACIDOPHILUS 1 TABLET GT SCH (10:25)
[2022-12-22] MEDS: POLYETHYLENE GLYCOL (HEALTHYLAX) 3350 17 GM PACKET GT SCH (10:26)
[2022-12-22] MEDS: FUROSEMIDE 20 MG TABLET (FP) GT SCH (10:26)
[2022-12-22] MEDS: amLODIPine BESYLATE 5 MG TABLET (FP) GT SCH (10:26)
[2022-12-22] MEDS: FINASTERIDE 5 MG TABLET (FP) GT SCH (10:27)
[2022-12-22] MEDS: METOPROLOL TARTRATE 25 MG TABLET (FP) GT SCH ×2 (10:27→21:12)
[2022-12-22] MEDS: FAMOTIDINE 40 MG/5 ML ORAL SUSPENSION PEG SCH (10:28)
[2022-12-22] MEDS ORDERED: INSULIN (NOVOLOG) ASPART 100 UNITS/ML 10ML VIAL ONE ×2 (19:59→20:47)
[2022-12-22] MEDS: INSULIN (LEVEMIR) 100 UNITS/ML UNITS SQ SCH (21:11)
[2022-12-22] MEDS: DOXAZOSIN MESYLATE 4 MG TABLET GT SCH (21:11)
[2022-12-22] MEDS: ENOXAPARIN NA (PORCINE) 40 MG/0.4 ML DISP.SYRIN SQ SCH (21:12)
[2022-12-22] MEDS: SENNOSIDES 8.8 MG/5 ML SYRUP GT SCH (21:12)
[2022-12-23] MEDS: AMOX TR/POTASSIUM CLAVULANATE 250 MG/5 ML BOTTLE GT SCH ×3 (06:31→22:53)
[2022-12-23] MEDS: INSULIN SLIDING SCALE (NOVOLOG) 1 VIAL SQ SCH ×3 (06:32→17:34)
[2022-12-23] MEDS: PHENYTOIN ORAL SUSP 125 MG/5 ML GT SCH ×3 (06:32→22:52)
[2022-12-23] MEDS: Lacosamide 50 MG/5 ML ORAL SOLUTION UNIT CUPS GT SCH ×3 (06:32→22:53)
[2022-12-23 08:55] LABS: HEMATOCRIT 30.1 % (35.4-49); HEMOGLOBIN 10.2 GM/dL (11.7-16.9); MCH 31.5 pg (25.7-33.7); MCHC 33.9 g/dl (32.0-35.9); MEAN CELL VOLUME 92.9 fl (80-96); MEAN PLT VOLUME 7.9 fl (7.5-11.1); PLATELET COUNT 551 10^3/uL (134-434); RBC 3.24 M/mm3 (4.00-5.60); RDW 16.2 % (11.9-15.9); WHITE BLOOD COUNT 8.9 K/mm3 (4.0-10.0)
[2022-12-23 09:34] LABS: CALCIUM 9.7 mg/dL (8.5-10.1)
[2022-12-23 09:35] LABS: MAGNESIUM 2.5 mg/dL (1.8-2.4)
[2022-12-23 09:38] LABS: CREATININE 0.4 mg/dL (0.55-1.3); PHOSPHOROUS 3.6 mg/dL (2.5-4.9)
[2022-12-23 09:39] LABS: BILIRUBIN,TOTAL 0.3 mg/dL (0.2-1); BLOOD UREA NITROGEN 24.6 mg/dL (7-18)
[2022-12-23 09:40] LABS: TOT PROT 7.7 g/dl (6.4-8.2)
[2022-12-23] MEDS: FINASTERIDE 5 MG TABLET (FP) GT SCH (10:29)
[2022-12-23] MEDS: ASCORBIC ACID 500 MG TABLET (FP) PO SCH (10:29)
[2022-12-23] MEDS: AMINO ACIDS/PROTEIN HYDROLYS 30 ML LIQUID.PKT PO SCH (10:29)
[2022-12-23] MEDS: FUROSEMIDE 20 MG TABLET (FP) GT SCH (10:29)
[2022-12-23] MEDS: FAMOTIDINE 40 MG/5 ML ORAL SUSPENSION PEG SCH (10:29)
[2022-12-23] MEDS: LACTOBACILLUS ACIDOPHILUS 1 TABLET GT SCH (10:29)
[2022-12-23] MEDS: METOPROLOL TARTRATE 25 MG TABLET (FP) GT SCH ×2 (10:29→22:54)
[2022-12-23] MEDS: POLYETHYLENE GLYCOL (HEALTHYLAX) 3350 17 GM PACKET GT SCH (10:29)
[2022-12-23] MEDS: amLODIPine BESYLATE 5 MG TABLET (FP) GT SCH (10:29)
[2022-12-23] MEDS ORDERED: COLLAGENASE CLOSTRIDIUM HIST. 30 GRAMS TUBE TP SCH (10:30)
[2022-12-23] MEDS: MULTIVIT-MINERALS ORAL LIQUID GT SCH (11:12)
[2022-12-23] MEDS: COLLAGENASE CLOSTRIDIUM HIST. 30 GRAMS TUBE TP SCH (11:13)
[2022-12-23] MEDS ORDERED: INSULIN (NOVOLOG) ASPART 100 UNITS/ML 10ML VIAL ONE (12:10)
[2022-12-23] MEDS ORDERED: INSULIN (LEVEMIR) 100 UNITS/ML UNITS SQ ONE (20:34)
[2022-12-23] MEDS: INSULIN (LEVEMIR) 100 UNITS/ML UNITS SQ SCH (22:52)
[2022-12-23] MEDS: ENOXAPARIN NA (PORCINE) 40 MG/0.4 ML DISP.SYRIN SQ SCH (22:53)
[2022-12-23] MEDS: DOXAZOSIN MESYLATE 4 MG TABLET GT SCH (22:54)
[2022-12-23] MEDS: SENNOSIDES 8.8 MG/5 ML SYRUP GT SCH (22:54)
[2022-12-24] MEDS: PHENYTOIN ORAL SUSP 125 MG/5 ML GT SCH ×3 (05:17→21:58)
[2022-12-24] MEDS: AMOX TR/POTASSIUM CLAVULANATE 250 MG/5 ML BOTTLE GT SCH ×3 (05:17→21:58)
[2022-12-24] MEDS: Lacosamide 50 MG/5 ML ORAL SOLUTION UNIT CUPS GT SCH ×3 (06:31→21:57)
[2022-12-24] MEDS: INSULIN SLIDING SCALE (NOVOLOG) 1 VIAL SQ SCH ×3 (07:08→17:07)
[2022-12-24] MEDS: AMINO ACIDS/PROTEIN HYDROLYS 30 ML LIQUID.PKT PO SCH (08:42)
[2022-12-24] MEDS: MULTIVIT-MINERALS ORAL LIQUID GT SCH ×2 (08:42→10:48)
[2022-12-24] MEDS: ASCORBIC ACID 500 MG TABLET (FP) PO SCH ×2 (08:43→10:50)
[2022-12-24] MEDS: METOPROLOL TARTRATE 25 MG TABLET (FP) GT SCH ×3 (08:43→21:58)
[2022-12-24] MEDS: FUROSEMIDE 20 MG TABLET (FP) GT SCH ×2 (08:43→10:49)
[2022-12-24] MEDS: LACTOBACILLUS ACIDOPHILUS 1 TABLET GT SCH ×2 (08:43→10:48)
[2022-12-24] MEDS: amLODIPine BESYLATE 5 MG TABLET (FP) GT SCH ×2 (08:44→10:50)
[2022-12-24] MEDS: FINASTERIDE 5 MG TABLET (FP) GT SCH ×2 (08:45→10:50)
[2022-12-24] MEDS: COLLAGENASE CLOSTRIDIUM HIST. 30 GRAMS TUBE TP SCH ×2 (08:48→10:50)
[2022-12-24 08:53] LABS: HEMATOCRIT 31.3 % (35.4-49); HEMOGLOBIN 10.8 GM/dL (11.7-16.9); MCH 32.3 pg (25.7-33.7); MCHC 34.5 g/dl (32.0-35.9); MEAN CELL VOLUME 93.6 fl (80-96); MEAN PLT VOLUME 7.9 fl (7.5-11.1); PLATELET COUNT 508 10^3/uL (134-434); RBC 3.34 M/mm3 (4.00-5.60); WHITE BLOOD COUNT 10.6 K/mm3 (4.0-10.0)
[2022-12-24 09:04] LABS: CALCIUM 9.5 mg/dL (8.5-10.1); MAGNESIUM 2.4 mg/dL (1.8-2.4)
[2022-12-24 09:08] LABS: CREATININE 0.5 mg/dL (0.55-1.3); PHOSPHOROUS 3.3 mg/dL (2.5-4.9)
[2022-12-24 09:09] LABS: BILIRUBIN,TOTAL 0.3 mg/dL (0.2-1)
[2022-12-24 09:10] LABS: TOT PROT 7.8 g/dl (6.4-8.2)
[2022-12-24] MEDS: POLYETHYLENE GLYCOL (HEALTHYLAX) 3350 17 GM PACKET GT SCH (10:49)
[2022-12-24] MEDS: FAMOTIDINE 40 MG/5 ML ORAL SUSPENSION PEG SCH (11:14)
[2022-12-24] MEDS ORDERED: INSULIN (LEVEMIR) 100 UNITS/ML UNITS SQ ONE (20:52)
[2022-12-24] MEDS: ENOXAPARIN NA (PORCINE) 40 MG/0.4 ML DISP.SYRIN SQ SCH (21:58)
[2022-12-24] MEDS: INSULIN (LEVEMIR) 100 UNITS/ML UNITS SQ SCH (21:59)
[2022-12-24] MEDS: DOXAZOSIN MESYLATE 4 MG TABLET GT SCH (21:59)
[2022-12-24] MEDS: SENNOSIDES 8.8 MG/5 ML SYRUP GT SCH (22:00)
[2022-12-25] MEDS: AMOX TR/POTASSIUM CLAVULANATE 250 MG/5 ML BOTTLE GT SCH ×3 (06:38→23:17)
[2022-12-25] MEDS: PHENYTOIN ORAL SUSP 125 MG/5 ML GT SCH ×3 (06:39→23:14)
[2022-12-25] MEDS: Lacosamide 50 MG/5 ML ORAL SOLUTION UNIT CUPS GT SCH ×3 (06:39→23:17)
[2022-12-25] MEDS: INSULIN SLIDING SCALE (NOVOLOG) 1 VIAL SQ SCH ×3 (06:42→16:09)
[2022-12-25 08:56] LABS: HEMATOCRIT 30.5 % (35.4-49); HEMOGLOBIN 10.4 GM/dL (11.7-16.9); MCH 32.2 pg (25.7-33.7); MCHC 34.2 g/dl (32.0-35.9); MEAN PLT VOLUME 8.1 fl (7.5-11.1); PLATELET COUNT 481 10^3/uL (134-434); RBC 3.24 M/mm3 (4.00-5.60); WHITE BLOOD COUNT 9.8 K/mm3 (4.0-10.0)
[2022-12-25 09:24] LABS: BLOOD UREA NITROGEN 28.9 mg/dL (7-18); CALCIUM 9.6 mg/dL (8.5-10.1); MAGNESIUM 2.4 mg/dL (1.8-2.4)
[2022-12-25 09:27] LABS: CREATININE 0.6 mg/dL (0.55-1.3)
[2022-12-25 09:28] LABS: PHOSPHOROUS 3.3 mg/dL (2.5-4.9)
[2022-12-25 09:29] LABS: BILIRUBIN,TOTAL 0.2 mg/dL (0.2-1); TOT PROT 7.7 g/dl (6.4-8.2)
[2022-12-25] MEDS: FAMOTIDINE 40 MG/5 ML ORAL SUSPENSION PEG SCH (09:33)
[2022-12-25] MEDS: METOPROLOL TARTRATE 25 MG TABLET (FP) GT SCH ×2 (09:33→23:16)
[2022-12-25] MEDS: MULTIVIT-MINERALS ORAL LIQUID GT SCH (09:33)
[2022-12-25] MEDS: ASCORBIC ACID 500 MG TABLET (FP) PO SCH (09:33)
[2022-12-25] MEDS: FINASTERIDE 5 MG TABLET (FP) GT SCH (09:33)
[2022-12-25] MEDS: LACTOBACILLUS ACIDOPHILUS 1 TABLET GT SCH (09:33)
[2022-12-25] MEDS: amLODIPine BESYLATE 5 MG TABLET (FP) GT SCH (09:34)
[2022-12-25] MEDS: AMINO ACIDS/PROTEIN HYDROLYS 30 ML LIQUID.PKT PO SCH (09:34)
[2022-12-25] MEDS: FUROSEMIDE 20 MG TABLET (FP) GT SCH (09:34)
[2022-12-25] MEDS: POLYETHYLENE GLYCOL (HEALTHYLAX) 3350 17 GM PACKET GT SCH (09:34)
[2022-12-25] MEDS: COLLAGENASE CLOSTRIDIUM HIST. 30 GRAMS TUBE TP SCH (09:45)
[2022-12-25] MEDS: DOXAZOSIN MESYLATE 4 MG TABLET GT SCH (23:15)
[2022-12-25] MEDS: INSULIN (LEVEMIR) 100 UNITS/ML UNITS SQ SCH (23:16)
[2022-12-25] MEDS: ENOXAPARIN NA (PORCINE) 40 MG/0.4 ML DISP.SYRIN SQ SCH (23:17)
[2022-12-25] MEDS: SENNOSIDES 8.8 MG/5 ML SYRUP GT SCH (23:17)
[2022-12-26] MEDS: PHENYTOIN ORAL SUSP 125 MG/5 ML GT SCH ×3 (05:13→22:29)
[2022-12-26] MEDS: AMOX TR/POTASSIUM CLAVULANATE 250 MG/5 ML BOTTLE GT SCH (05:13)
[2022-12-26] MEDS: INSULIN SLIDING SCALE (NOVOLOG) 1 VIAL SQ SCH ×3 (06:03→17:31)
[2022-12-26 08:21] LABS: BASO % 1.4 % (0-2.0); EOS % 2.6 % (0-4.5); HEMATOCRIT 29.7 % (35.4-49); HEMOGLOBIN 10.2 GM/dL (11.7-16.9); LYMPH % 26.5 % (8-40); MCH 32.3 pg (25.7-33.7); MCHC 34.5 g/dl (32.0-35.9); MEAN CELL VOLUME 93.7 fl (80-96); MEAN PLT VOLUME 8.3 fl (7.5-11.1); MONO % 8.1 % (3.8-10.2); NEUT % 61.4 % (42.8-82.8); PLATELET COUNT 433 10^3/uL (134-434); RBC 3.17 M/mm3 (4.00-5.60); RDW 16.4 % (11.9-15.9); WHITE BLOOD COUNT 8.5 K/mm3 (4.0-10.0)
[2022-12-26 08:44] LABS: BLOOD UREA NITROGEN 31.2 mg/dL (7-18); CALCIUM 9.6 mg/dL (8.5-10.1); MAGNESIUM 2.3 mg/dL (1.8-2.4)
[2022-12-26 08:47] LABS: CREATININE 0.6 mg/dL (0.55-1.3); PHOSPHOROUS 3.1 mg/dL (2.5-4.9)
[2022-12-26 08:49] LABS: BILIRUBIN,TOTAL 0.2 mg/dL (0.2-1); TOT PROT 7.5 g/dl (6.4-8.2)
[2022-12-26] MEDS: METOPROLOL TARTRATE 25 MG TABLET (FP) GT SCH ×2 (09:37→22:29)
[2022-12-26] MEDS: ASCORBIC ACID 500 MG TABLET (FP) PO SCH (09:37)
[2022-12-26] MEDS: LACTOBACILLUS ACIDOPHILUS 1 TABLET GT SCH (09:37)
[2022-12-26] MEDS: FAMOTIDINE 40 MG/5 ML ORAL SUSPENSION PEG SCH (09:37)
[2022-12-26] MEDS: Lacosamide 50 MG/5 ML ORAL SOLUTION UNIT CUPS GT SCH ×2 (09:38→13:37)
[2022-12-26] MEDS: amLODIPine BESYLATE 5 MG TABLET (FP) GT SCH (09:38)
[2022-12-26] MEDS: POLYETHYLENE GLYCOL (HEALTHYLAX) 3350 17 GM PACKET GT SCH (09:40)
[2022-12-26] MEDS: FINASTERIDE 5 MG TABLET (FP) GT SCH (09:40)
[2022-12-26] MEDS: FUROSEMIDE 20 MG TABLET (FP) GT SCH (09:40)
[2022-12-26] MEDS: MULTIVIT-MINERALS ORAL LIQUID GT SCH (09:41)
[2022-12-26] MEDS: AMINO ACIDS/PROTEIN HYDROLYS 30 ML LIQUID.PKT PO SCH (09:45)
[2022-12-26] MEDS: COLLAGENASE CLOSTRIDIUM HIST. 30 GRAMS TUBE TP SCH (10:59)
[2022-12-26] MEDS ORDERED: INSULIN (NOVOLOG) ASPART 100 UNITS/ML 10ML VIAL ONE (21:49)
[2022-12-26] MEDS: INSULIN (LEVEMIR) 100 UNITS/ML UNITS SQ SCH (22:27)
[2022-12-26] MEDS: DOXAZOSIN MESYLATE 4 MG TABLET GT SCH (22:31)
[2022-12-26] MEDS: SENNOSIDES 8.8 MG/5 ML SYRUP GT SCH (22:31)
[2022-12-27] MEDS: PHENYTOIN ORAL SUSP 125 MG/5 ML GT SCH ×3 (06:30→22:54)
[2022-12-27] MEDS: INSULIN SLIDING SCALE (NOVOLOG) 1 VIAL SQ SCH ×3 (06:31→17:00)
[2022-12-27] MEDS: AMINO ACIDS/PROTEIN HYDROLYS 30 ML LIQUID.PKT PO SCH (09:41)
[2022-12-27] MEDS: ASCORBIC ACID 500 MG TABLET (FP) PO SCH (09:42)
[2022-12-27] MEDS: METOPROLOL TARTRATE 25 MG TABLET (FP) GT SCH ×2 (09:42→22:55)
[2022-12-27] MEDS: amLODIPine BESYLATE 5 MG TABLET (FP) GT SCH (09:42)
[2022-12-27] MEDS: FUROSEMIDE 20 MG TABLET (FP) GT SCH (09:42)
[2022-12-27] MEDS: LACTOBACILLUS ACIDOPHILUS 1 TABLET GT SCH (09:42)
[2022-12-27] MEDS: FAMOTIDINE 40 MG/5 ML ORAL SUSPENSION PEG SCH (09:43)
[2022-12-27] MEDS: COLLAGENASE CLOSTRIDIUM HIST. 30 GRAMS TUBE TP SCH (09:43)
[2022-12-27] MEDS: FINASTERIDE 5 MG TABLET (FP) GT SCH (09:43)
[2022-12-27] MEDS: MULTIVIT-MINERALS ORAL LIQUID GT SCH (09:44)
[2022-12-27] MEDS: POLYETHYLENE GLYCOL (HEALTHYLAX) 3350 17 GM PACKET GT SCH (09:45)
[2022-12-27] MEDS ORDERED: INSULIN (NOVOLOG) ASPART 100 UNITS/ML 10ML VIAL ONE ×2 (11:52→12:00)
[2022-12-27] MEDS: ENOXAPARIN NA (PORCINE) 40 MG/0.4 ML DISP.SYRIN SQ SCH (19:10)
[2022-12-27] MEDS: DOXAZOSIN MESYLATE 4 MG TABLET GT SCH (22:55)
[2022-12-27] MEDS: INSULIN (LEVEMIR) 100 UNITS/ML UNITS SQ SCH (22:55)
[2022-12-27] MEDS: SENNOSIDES 8.8 MG/5 ML SYRUP GT SCH (22:56)
[2022-12-28] MEDS: PHENYTOIN ORAL SUSP 125 MG/5 ML GT SCH ×3 (06:44→22:24)
[2022-12-28] MEDS: INSULIN SLIDING SCALE (NOVOLOG) 1 VIAL SQ SCH ×3 (06:46→16:26)
[2022-12-28 10:06] LABS: BASO % 1.1 % (0-2.0); HEMATOCRIT 31.1 % (35.4-49); HEMOGLOBIN 10.9 GM/dL (11.7-16.9); LYMPH % 20.4 % (8-40); MCH 32.7 pg (25.7-33.7); MEAN CELL VOLUME 93.4 fl (80-96); MEAN PLT VOLUME 8.8 fl (7.5-11.1); NEUT % 69.5 % (42.8-82.8); PLATELET COUNT 398 10^3/uL (134-434); RBC 3.33 M/mm3 (4.00-5.60); RDW 15.8 % (11.9-15.9); WHITE BLOOD COUNT 9.5 K/mm3 (4.0-10.0)
[2022-12-28 10:21] LABS: CALCIUM 9.7 mg/dL (8.5-10.1)
[2022-12-28 10:22] LABS: ALBUMIN 3.1 g/dl (3.4-5.0); BLOOD UREA NITROGEN 24.1 mg/dL (7-18)
[2022-12-28 10:25] LABS: CREATININE 0.5 mg/dL (0.55-1.3)
[2022-12-28 10:27] LABS: BILIRUBIN,TOTAL 0.2 mg/dL (0.2-1); TOT PROT 7.9 g/dl (6.4-8.2)
[2022-12-28] MEDS: AMINO ACIDS/PROTEIN HYDROLYS 30 ML LIQUID.PKT PO SCH (11:00)
[2022-12-28] MEDS: MULTIVIT-MINERALS ORAL LIQUID GT SCH (11:01)
[2022-12-28] MEDS: ENOXAPARIN NA (PORCINE) 40 MG/0.4 ML DISP.SYRIN SQ SCH (11:01)
[2022-12-28] MEDS: LACTOBACILLUS ACIDOPHILUS 1 TABLET GT SCH (11:02)
[2022-12-28] MEDS: ASCORBIC ACID 500 MG TABLET (FP) PO SCH (11:02)
[2022-12-28] MEDS: amLODIPine BESYLATE 5 MG TABLET (FP) GT SCH (11:02)
[2022-12-28] MEDS: METOPROLOL TARTRATE 25 MG TABLET (FP) GT SCH ×2 (11:02→22:23)
[2022-12-28] MEDS: FINASTERIDE 5 MG TABLET (FP) GT SCH (11:02)
[2022-12-28] MEDS: POLYETHYLENE GLYCOL (HEALTHYLAX) 3350 17 GM PACKET GT SCH (11:03)
[2022-12-28] MEDS: FUROSEMIDE 20 MG TABLET (FP) GT SCH (11:03)
[2022-12-28] MEDS: FAMOTIDINE 40 MG/5 ML ORAL SUSPENSION PEG SCH (11:08)
[2022-12-28] MEDS: COLLAGENASE CLOSTRIDIUM HIST. 30 GRAMS TUBE TP SCH (11:09)
[2022-12-28] MEDS: DOXAZOSIN MESYLATE 4 MG TABLET GT SCH (22:23)
[2022-12-28] MEDS: INSULIN (LEVEMIR) 100 UNITS/ML UNITS SQ SCH (22:24)
[2022-12-28] MEDS: SENNOSIDES 8.8 MG/5 ML SYRUP GT SCH (22:27)
[2022-12-29] MEDS: PHENYTOIN ORAL SUSP 125 MG/5 ML GT SCH ×3 (06:32→23:05)
[2022-12-29] MEDS: INSULIN SLIDING SCALE (NOVOLOG) 1 VIAL SQ SCH ×3 (06:32→16:37)
[2022-12-29] MEDS: MULTIVIT-MINERALS ORAL LIQUID GT SCH (10:48)
[2022-12-29] MEDS: POLYETHYLENE GLYCOL (HEALTHYLAX) 3350 17 GM PACKET GT SCH (10:48)
[2022-12-29] MEDS: AMINO ACIDS/PROTEIN HYDROLYS 30 ML LIQUID.PKT PO SCH (10:48)
[2022-12-29] MEDS: ENOXAPARIN NA (PORCINE) 40 MG/0.4 ML DISP.SYRIN SQ SCH (10:48)
[2022-12-29] MEDS: FAMOTIDINE 40 MG/5 ML ORAL SUSPENSION PEG SCH (10:49)
[2022-12-29] MEDS: LACTOBACILLUS ACIDOPHILUS 1 TABLET GT SCH (10:49)
[2022-12-29] MEDS: FUROSEMIDE 20 MG TABLET (FP) GT SCH (10:50)
[2022-12-29] MEDS: amLODIPine BESYLATE 5 MG TABLET (FP) GT SCH (10:50)
[2022-12-29] MEDS: METOPROLOL TARTRATE 25 MG TABLET (FP) GT SCH ×2 (10:50→23:05)
[2022-12-29] MEDS: FINASTERIDE 5 MG TABLET (FP) GT SCH (10:50)
[2022-12-29] MEDS: ASCORBIC ACID 500 MG TABLET (FP) PO SCH (10:50)
[2022-12-29] MEDS ORDERED: INSULIN (NOVOLOG) ASPART 100 UNITS/ML 10ML VIAL ONE (11:19)
[2022-12-29] MEDS: COLLAGENASE CLOSTRIDIUM HIST. 30 GRAMS TUBE TP SCH (14:13)
[2022-12-29] MEDS: SENNOSIDES 8.8 MG/5 ML SYRUP GT SCH (23:05)
[2022-12-29] MEDS: INSULIN (LEVEMIR) 100 UNITS/ML UNITS SQ SCH (23:06)
[2022-12-29] MEDS: DOXAZOSIN MESYLATE 4 MG TABLET GT SCH (23:06)
[2022-12-30] MEDS: INSULIN SLIDING SCALE (NOVOLOG) 1 VIAL SQ SCH ×3 (06:33→17:01)
[2022-12-30] MEDS: PHENYTOIN ORAL SUSP 125 MG/5 ML GT SCH ×3 (06:45→21:29)
[2022-12-30] MEDS: AMINO ACIDS/PROTEIN HYDROLYS 30 ML LIQUID.PKT PO SCH (10:55)
[2022-12-30] MEDS: ENOXAPARIN NA (PORCINE) 40 MG/0.4 ML DISP.SYRIN SQ SCH (11:18)
[2022-12-30] MEDS: POLYETHYLENE GLYCOL (HEALTHYLAX) 3350 17 GM PACKET GT SCH (11:18)
[2022-12-30] MEDS: ASCORBIC ACID 500 MG TABLET (FP) PO SCH (11:19)
[2022-12-30] MEDS: amLODIPine BESYLATE 5 MG TABLET (FP) GT SCH (11:19)
[2022-12-30] MEDS: METOPROLOL TARTRATE 25 MG TABLET (FP) GT SCH ×2 (11:19→21:30)
[2022-12-30] MEDS: FINASTERIDE 5 MG TABLET (FP) GT SCH (11:19)
[2022-12-30] MEDS: FUROSEMIDE 20 MG TABLET (FP) GT SCH (11:19)
[2022-12-30] MEDS: LACTOBACILLUS ACIDOPHILUS 1 TABLET GT SCH (11:19)
[2022-12-30] MEDS: FAMOTIDINE 40 MG/5 ML ORAL SUSPENSION PEG SCH (11:20)
[2022-12-30] MEDS: MULTIVIT-MINERALS ORAL LIQUID GT SCH (11:21)
[2022-12-30] MEDS: COLLAGENASE CLOSTRIDIUM HIST. 30 GRAMS TUBE TP SCH (11:22)
[2022-12-30] MEDS ORDERED: INSULIN (NOVOLOG) ASPART 100 UNITS/ML 10ML VIAL ONE (20:17)
[2022-12-30] MEDS: DOXAZOSIN MESYLATE 4 MG TABLET GT SCH (21:29)
[2022-12-30] MEDS: INSULIN (LEVEMIR) 100 UNITS/ML UNITS SQ SCH (21:30)
[2022-12-30] MEDS: SENNOSIDES 8.8 MG/5 ML SYRUP GT SCH (21:38)
[2022-12-31] MEDS: INSULIN SLIDING SCALE (NOVOLOG) 1 VIAL SQ SCH (06:01)
[2022-12-31] MEDS: PHENYTOIN ORAL SUSP 125 MG/5 ML GT SCH (06:21)
[2022-12-31 08:44] VITALS: BP 116/76; PULSE 108; RESP 18; TEMP 98.7
[2022-12-31] MEDS: POLYETHYLENE GLYCOL (HEALTHYLAX) 3350 17 GM PACKET GT SCH (10:09)
[2022-12-31] MEDS: ENOXAPARIN NA (PORCINE) 40 MG/0.4 ML DISP.SYRIN SQ SCH (10:09)
[2022-12-31] MEDS: LACTOBACILLUS ACIDOPHILUS 1 TABLET GT SCH (10:10)
[2022-12-31] MEDS: ASCORBIC ACID 500 MG TABLET (FP) PO SCH (10:10)
[2022-12-31] MEDS: METOPROLOL TARTRATE 25 MG TABLET (FP) GT SCH (10:10)
[2022-12-31] MEDS: FUROSEMIDE 20 MG TABLET (FP) GT SCH (10:10)
[2022-12-31] MEDS: amLODIPine BESYLATE 5 MG TABLET (FP) GT SCH (10:10)
[2022-12-31] MEDS: AMINO ACIDS/PROTEIN HYDROLYS 30 ML LIQUID.PKT PO SCH (10:10)
[2022-12-31] MEDS: FINASTERIDE 5 MG TABLET (FP) GT SCH (10:10)
[2022-12-31] MEDS: MULTIVIT-MINERALS ORAL LIQUID GT SCH (10:11)
[2022-12-31] MEDS: FAMOTIDINE 40 MG/5 ML ORAL SUSPENSION PEG SCH (10:12)
[2022-12-31] MEDS: COLLAGENASE CLOSTRIDIUM HIST. 30 GRAMS TUBE TP SCH (11:06)
== END 2022-12-31 11:10 | DRG 870 ==
LOC: JER 10:21 → JERBED 11:27 → J2W 12-15 03:52 → J7W 12-19 16:42
PROVIDERS: ADMIT Internal Medicine; ATTEND Internal Medicine
PROC: 5A1955Z Respiratory Ventilation, Greater than 96 Consecutive Hours (ICD-10-PCS; principal; 2022-12-14)
DX: A41.9 Sepsis, unspecified organism (principal); G93.41 Metabolic encephalopathy; J96.21 Acute and chronic respiratory failure with hypoxia; J18.9 Pneumonia, unspecified organism; N12 Tubulo-interstitial nephritis, not specified as acute or chronic; N39.0 Urinary tract infection, site not specified; G81.94 Hemiplegia, unspecified affecting left nondominant side; K86.2 Cyst of pancreas; R65.20 Severe sepsis without septic shock; E11.9 Type 2 diabetes mellitus without complications; G40.909 Epilepsy, unspecified, not intractable, without status epilepticus; E78.5 Hyperlipidemia, unspecified; I10 Essential (primary) hypertension
CPT/HCPCS: 0241U-QW; 36415; 70450-TC; 71045-TC-FY; 71250-TC; 74176-TC; 74230-TC-FY; 80048; 80053; 80076; 80185; 80186; 81003; 82150; 82803; 82962; 82977; 83605; 83690; 83735; 84100; 84484; 85025; 85027; 85610; 85730; 86301; 86850; 86900; 86901; 87040; 87086; 87186; 92611-GN; 93005; 93010; 94002; 94640; 97161-GP; 99285-25; C9803-CS; U0003; U0005